=== PATIENT | female | born 2000 | race Caucasian/White ===

== ENCOUNTER 2023-10-10 19:45 | Emergency (ER) | payer MEDICAID, SELFPAY ==
[2023-10-10 19:46] VITALS: BP 178/107; PULSE 122; RESP 16; TEMP 37.5; O2SAT 99; BMI 26.5
--- NOTE | 2023-10-10 19:46 | ED_ITS ---
<Statement entered by Basia Bautista DO - 10/10/23 22:32> I was consulted by the LIT, and we discussed the complexity of the problems being addressed. I approved the treatment and management plan for this patient's care in the emergency department, thus performing a substantive portion of the medical decision making. I performed bedside cardiac ultrasound, which was reassuring. Please see procedure note. I also interpreted EKG, which was also reassuring. Basia Bautista DO Discharge Plan Disposition Patient Disposition: Home, Self-Care Condition: Good Referrals Follow up/Referrals: Provider,MD Divine [Primary Care Provider] - See instructions Balbir Rayo MD [Staff Physician] - See instructions Activity Restrictions/Add. Instructions Additional Instructions/Restrictions: Please call first thing in the morning and make an appointment with cardiology. Return to the ER for any worsening signs or symptoms. Clinical Impressions Clinical Impression: Sinus tachycardia Breast mass, right Qualifiers: Breast mass location: upper inner quadrant Qualified Code(s): N63.12 - Unspecified lump in the right breast, upper inner quadrant Instructions Patient Instructions: DI for Tachycardia, DI for Breast Mass -- Uncertain Cause Print Language Print Language: Emirati Discharge ED Provider: Basia Bautista HPI <ALEXYS Langley - Last Filed: 10/10/23 22:06> General Chief Complaint: Chest Pain Stated Complaint: Chest pain Time Seen by Provider: 10/10/23 19:46 History of Present Illness HPI narrative: Patient presents for evaluation of chest pain and palpitations. Patient states that she has been having a rapid heart rate since a Monday and then began having associated chest pain with it yesterday. Patient states that she noticed that her heart rates been elevated all week but it got as high as 150s and 60s on Monday. 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 She does have a family history of a younger brother who at age 14 of an AVM and has a mother with a history of brain tumor. She denies fever chills hemoptysis hematochezia melena nausea vomiting diarrhea. On arrival patient is tachycardic at 122 Related Data Allergies Allergy/AdvReac Type Severity Reaction Status Date / Time No Known Allergies Allergy Verified 10/10/23 20:10 PFS <ALEXYS Langley - Last Filed: 10/10/23 22:06> COUNTS INCLUDE 234 BEDS AT THE [facility] Disclaimer: The information contained in this section may have been updated after the patient was seen, as this information can be updated by other users. Social History (Updated 10/10/23 @ 22:05 by ALEXYS Langley) Smoking Status: Never smoker alcohol intake: never current occupational status: employed Travel in the last 8 weeks: None <ALEXYS Langley - Last Filed: 10/10/23 22:06> ROS Obtained: Yes Systems reviewed as appropriate & no additional complaints except as documented Physical Exam <ALEXYS Langley - Last Filed: 10/10/23 22:06> General General appearance: alert and in no apparent distress Head Head exam: atraumatic and normal inspection Eye Eye exam: Present normal appearance and EOMI ENT ENT exam: Present normal exam and normal oropharynx Neck Neck exam: Present normal inspection and full ROM; Absent trachea midline or lymphadenopathy Chest Chest inspection: Present normal inspection and symmetric chest wall rise; Absent tenderness Respiratory Respiratory exam: Present normal lung sounds bilaterally; Absent accessory muscle use Cardiovascular Cardiovascular exam: Present normal rhythm, tachycardia, normal heart sounds, +S1 and +S2 Extremities Exam Extremities exam: Present normal inspection and full ROM Back Exam Back exam: Present normal inspection and full ROM Neurological Exam Neurological exam: Present alert, oriented X3 and CN II-XII intact Psychiatric Psychiatric exam: Present normal mood and anxious Skin Skin exam: Present warm, dry and normal color HEART Score <ALEXYS Langley - Last Filed: 10/10/23 22:06> HEART Score HEART Score assessment performed?: Yes History (anamnesis): Slightly suspicious ECG: Non-specific disturbance Age: <45 years Risk factors: No known risk factors Troponin: </= normal limit HEART Score: 1 <Basia Bautista DO - Last Filed: 10/10/23 22:32> HEART Score HEART Score: 1 Procedures <Basia Bautista DO - Last Filed: 10/10/23 22:32> Limited Ultrasound Views:: Limited cardiac ultrasound Indication: Chest pain, palpitation Identified cardiac views: -Cardiac parasternal long axis -Cardiac parasternal short axis -Cardiac subxiphoid Findings: -Cardiac activity present -Gross wall motion normal -Pericardial effusion absent -Right heart strain absent Impression: -From above Images were saved to permanent archive The study was technically adequate CPT: 14987 This study was performed by me, and I personally interpreted all images/videos. Based on my clinical judgement, these images were adequate and did not necessitate further imaging. Critical Care <ALEXYS Langley - Last Filed: 10/10/23 22:06> Critical Care Time Critical Care Time: No Medical Decision Making <ALEXYS Langley - Last Filed: 10/10/23 22:06> Medical Records Medical records reviewed: Yes I reviewed the patient's medical records. Ariel Inquiry Pt receiving controlled substance: No Vital Signs Vital Signs: 10/10/23 19:46 10/10/23 19:57 10/10/23 20:30 Temperature 99.5 F Temperature Source Oral Pulse Rate 122 H 126 H Pulse Rate [Apical] 122 H Respiratory Rate 16 18 Blood Pressure 150/85 H Blood Pressure [Right Arm] 178/107 H Blood Pressure Mean [Right Arm] 130 Blood Pressure Source Blood Pressure Source [Right Arm] Automatic Cuff Blood Pressure Position Blood Pressure Position [Right Arm] Supine 02 Sat by Pulse Oximetry 99 97 Oxygen Delivery Method Room Air 10/10/23 21:00 10/10/23 22:06 Temperature 98.2 F Temperature Source Oral Pulse Rate 111 H 100 H Pulse Rate [Apical] Respiratory Rate 22 20 Blood Pressure 139/89 133/85 Blood Pressure [Right Arm] Blood Pressure Mean [Right Arm] Blood Pressure Source Automatic Cuff Blood Pressure Source [Right Arm] Blood Pressure Position Sitting Blood Pressure Position [Right Arm] 02 Sat by Pulse Oximetry 100 Oxygen Delivery Method Room Air Lab Data Lab results reviewed: Yes I reviewed the patient's lab results. Labs: Lab Results 10/10/23 20:00: WBC 12.7 H, RBC 4.50, Hgb 13.8, Hct 41.6, MCV 92.4, MCH 30.7, MCHC 33.2, RDW 12.8, Plt Count 324, MPV 7.8, Neut % (Auto) 69.2, Lymph % (Auto) 24.7, Holt % (Auto) 4.3, Eos % (Auto) 1.1, Baso % (Auto) 0.7, Neut # (Auto) 8.8 H, Lymph # (Auto) 3.1, Holt # (Auto) 0.5, Eos # (Auto) 0.1, Baso # (Auto) 0.1, Sodium 139, Potassium 3.5, Chloride 106, Carbon Dioxide 25, Anion Gap 11.5, BUN 12, Creatinine 0.90, Estimated Creat Clear 102, Estimated GFR 78, Est GFR ( Amer) 95, Glucose 102 H, Calcium 9.9, Magnesium 1.7, Troponin I < 0.01, TSH 1.66 10/10/23 20:00: TSH 1.67, Free T4 Index 3.9 L, Thyroxine (T4) 13.8 H, T3 Uptake 28, Serum HCG, Qual Negative 10/10/23 20:00 10/10/23 20:00 Response Orders (Tests/Meds): ED MEDICATIONS Discontinued Medications Generic Name Dose Route Start Last Admin Trade Name Freq PRN Reason Stop Dose Admin Acetaminophen 1,000 mg 10/10/23 19:57 10/10/23 20:16 Acetaminophen 1,000mg/100ml Vial IV 10/10/23 19:58 1,000 mg ONCE ONE Administration Hydroxyzine Pamoate 50 mg 10/10/23 19:57 10/10/23 20:16 Hydroxyzine Pamoate 25mg Capsule PO 10/10/23 19:58 50 mg ONCE ONE Administration Lactated Ringer's 1,000 mls @ 999 mls/hr 10/10/23 19:57 10/10/23 20:17 Lactated Ringer's 1000 Ml Bag IV 10/10/23 20:57 999 mls/hr .Q1H1M ONE Administration Iopamidol 75 ml 10/10/23 20:42 10/10/23 20:43 Iopamidol-370 (76%);100ml Bottle IV 10/10/23 20:43 75 ml ONCE ONE Administration Ketorolac Tromethamine 15 mg 10/10/23 19:57 10/10/23 20:16 Ketorolac 30mg/Ml Vial IV 10/10/23 19:58 15 mg ONCE ONE Administration Sodium Chloride 10 ml 10/10/23 20:42 10/10/23 20:43 Sodium Chloride 0.9% 10ml Syr (Rad Only) IV 11/09/23 20:41 10 ml NEEDED PRN Administration Maintain IV Site Sodium Chloride 50 ml 10/10/23 20:42 10/10/23 20:43 0.9 % Sodium Chloride 50 Ml Vial IV 10/10/23 20:43 50 ml ONCE ONE Administration ORDERS Category Date Time Status CT angio chest PE protocol Stat Cat Scan 10/10/23 19:57 Completed POCUS Point of Care (ER Only) Stat Exams 10/10/23 20:08 Taken BMP [Basic Metabolic Panel] Stat Lab 10/10/23 20:00 Completed CBC w/Auto Diff [Complete Blood Count Auto Diff] Stat Lab 10/10/23 20:00 Completed HCG Qualitative, Serum Stat Lab 10/10/23 20:00 Completed Magnesium Stat Lab 10/10/23 20:00 Completed TSH [Thyroid Stimulating Hormone] Stat Lab 10/10/23 20:00 Completed Thyroid Panel Stat Lab 10/10/23 20:00 Completed Trop I [Troponin I] Stat Lab 10/10/23 20:00 Completed MDM Narrative Medical Decision Narrative: In summary patient is a 23-year-old female who presents to the emergency department for evaluation of chest pain and tachycardia. Patient is hypertensive at 178/107 with a heart rate of 122 satting at 99% on room air with respiratory rate of 16 upon arrival, afebrile. Physical exam is unremarkable and nonfocal including no reproducible chest pain on palpation Blanding Coma Score 15 clear breath sounds and sinus tachycardia on the bedside monitor. Differential diagnosis includes sinus tachycardia versus SVT versus electrolyte abnormality versus PE versus hyperthyroidism etc. Initial workup will be conducted with hematologic labs twelve-lead EKG CT PE protocol urine drug screen urinalysis urine . Initial interventions include crystalloid bolus acetaminophen Toradol Vistaril. Initial workup reviewed by me shows that her hematologic labs are nonactionable including a undetectable troponin and normal POCUS echo. Upon repeat evaluation patient did have resolution of her chest pain but still is slightly tachycardic. My informal interpretation of CT PE protocol does not show any acute processes including no thrombus prior to radiology read however radiology read a 1.8 cm multilobulated right breast mass that they recommended be evaluated with nonemergent mammography given this patient is appropriate for discharge with referral to cardiology for further evaluation for other etiologies such as endocrine secreting tumor etc. Patient will be referred back to PCP for scheduling a mammogram for radiographic findings. <Basia Bautista, DO - Last Filed: 10/10/23 22:32> Vital Signs Vital Signs: 10/10/23 19:46 10/10/23 19:57 10/10/23 20:30 Temperature 99.5 F Temperature Source Oral Pulse Rate 122 H 126 H Pulse Rate [Apical] 122 H Respiratory Rate 16 18 Blood Pressure 150/85 H Blood Pressure [Right Arm] 178/107 H Blood Pressure Mean [Right Arm] 130 Blood Pressure Source Blood Pressure Source [Right Arm] Automatic Cuff Blood Pressure Position Blood Pressure Position [Right Arm] Supine 02 Sat by Pulse Oximetry 99 97 Oxygen Delivery Method Room Air 10/10/23 21:00 10/10/23 22:06 Temperature 98.2 F Temperature Source Oral Pulse Rate 111 H 100 H Pulse Rate [Apical] Respiratory Rate 22 20 Blood Pressure 139/89 133/85 Blood Pressure [Right Arm] Blood Pressure Mean [Right Arm] Blood Pressure Source Automatic Cuff Blood Pressure Source [Right Arm] Blood Pressure Position Sitting Blood Pressure Position [Right Arm] 02 Sat by Pulse Oximetry 100 Oxygen Delivery Method Room Air Lab Data Labs: Lab Results 10/10/23 20:00: WBC 12.7 H, RBC 4.50, Hgb 13.8, Hct 41.6, MCV 92.4, MCH 30.7, MCHC 33.2, RDW 12.8, Plt Count 324, MPV 7.8, Neut % (Auto) 69.2, Lymph % (Auto) 24.7, Holt % (Auto) 4.3, Eos % (Auto) 1.1, Baso % (Auto) 0.7, Neut # (Auto) 8.8 H, Lymph # (Auto) 3.1, Holt # (Auto) 0.5, Eos # (Auto) 0.1, Baso # (Auto) 0.1, Sodium 139, Potassium 3.5, Chloride 106, Carbon Dioxide 25, Anion Gap 11.5, BUN 12, Creatinine 0.90, Estimated Creat Clear 102, Estimated GFR 78, Est GFR ( Amer) 95, Glucose 102 H, Calcium 9.9, Magnesium 1.7, Troponin I < 0.01, TSH 1.66 10/10/23 20:00: TSH 1.67, Free T4 Index 3.9 L, Thyroxine (T4) 13.8 H, T3 Uptake 28, Serum HCG, Qual Negative Response Orders (Tests/Meds): ED MEDICATIONS Discontinued Medications Generic Name Dose Route Start Last Admin Trade Name Freq PRN Reason Stop Dose Admin Acetaminophen 1,000 mg 10/10/23 19:57 10/10/23 20:16 Acetaminophen 1,000mg/100ml Vial IV 10/10/23 19:58 1,000 mg ONCE ONE Administration Hydroxyzine Pamoate 50 mg 10/10/23 19:57 10/10/23 20:16 Hydroxyzine Pamoate 25mg Capsule PO 10/10/23 19:58 50 mg ONCE ONE Administration Lactated Ringer's 1,000 mls @ 999 mls/hr 10/10/23 19:57 10/10/23 20:17 Lactated Ringer's 1000 Ml Bag IV 10/10/23 20:57 999 mls/hr .Q1H1M ONE Administration Iopamidol 75 ml 10/10/23 20:42 10/10/23 20:43 Iopamidol-370 (76%);100ml Bottle IV 10/10/23 20:43 75 ml ONCE ONE Administration Ketorolac Tromethamine 15 mg 10/10/23 19:57 10/10/23 20:16 Ketorolac 30mg/Ml Vial IV 10/10/23 19:58 15 mg ONCE ONE Administration Sodium Chloride 10 ml 10/10/23 20:42 10/10/23 20:43 Sodium Chloride 0.9% 10ml Syr (Rad Only) IV 11/09/23 20:41 10 ml NEEDED PRN Administration Maintain IV Site Sodium Chloride 50 ml 10/10/23 20:42 10/10/23 20:43 0.9 % Sodium Chloride 50 Ml Vial IV 10/10/23 20:43 50 ml ONCE ONE Administration ORDERS Category Date Time Status CT angio chest PE protocol Stat Cat Scan 10/10/23 19:57 Completed POCUS Point of Care (ER Only) Stat Exams 10/10/23 20:08 Taken BMP [Basic Metabolic Panel] Stat Lab 10/10/23 20:00 Completed CBC w/Auto Diff [Complete Blood Count Auto Diff] Stat Lab 10/10/23 20:00 Completed HCG Qualitative, Serum Stat Lab 10/10/23 20:00 Completed Magnesium Stat Lab 10/10/23 20:00 Completed TSH [Thyroid Stimulating Hormone] Stat Lab 10/10/23 20:00 Completed Thyroid Panel Stat Lab 10/10/23 20:00 Completed Trop I [Troponin I] Stat Lab 10/10/23 20:00 Completed ECG Data Tracing #1: Attestation: I reviewed this ECG and interpreted as documented below: ECG Narrative: Sinus tachycardia with a ventricular rate of [address] changes concerning for ischemia. Normal axis and intervals. ECG initial impression date: 10/10/23 ECG initial impression time: 19:48
--- NOTE | 2023-10-10 19:46 | ECG_ITS ---
APPROVED REPORT Exam: Resting ECG HR:122 bpm ECG Measurements Heart Rate 122 AXES FL 124 P 64 QRSd 78 QRS 80 QT 295 T 32 QTc 367 Conclusion SINUS TACHYCARDIA NONSPECIFIC T-WAVE ABNORMALITY ABNORMAL RHYTHM ECG Electronically signed by : AUNDREA TRINIDAD, 10/10/2023 21:54:28
[2023-10-10 19:57] VITALS: PULSE 122
--- NOTE | 2023-10-10 19:57 | CT_ITS ---
PROCEDURE INFORMATION: Exam: CTA Chest With Contrast Exam date and time: 10/10/2023 8:42 PM Age: 23 years old Clinical indication: Pain; Tachypnea; Chest pressure; Additional info: Tachycardia, chest pain TECHNIQUE: Imaging protocol: Computed tomographic angiography of the chest with contrast. Exam focused on the arteries. 3D rendering (Not supervised by radiologist): MIP and/or 3D reconstructed images were created by the technologist. Total images: 771 Radiation optimization: All CT scans at this facility use at least one of these dose optimization techniques: automated exposure control; mA and/or kV adjustment per patient size (includes targeted exams where dose is matched to clinical indication); or iterative reconstruction. Contrast material: ISOVUE 370; Contrast volume: 75 ml; Contrast route: INTRAVENOUS (IV); COMPARISON: No relevant prior studies available. FINDINGS: Pulmonary arteries: Adequate contrast opacification the pulmonary arteries. Cardiac pulsation artifact along the pulmonary outflow tract. No acute pulmonary emboli. Aorta: No thoracic aortic aneurysm or dissection. Cardiac pulsation artifact ascending aorta. Thyroid: Thyromegaly. Thymus: Residual thymus. Lungs: The trachea and main bronchi are patent. The lungs are clear and well expanded. Pleural spaces: Unremarkable. No pneumothorax. No pleural effusion. Heart: Normal heart size. No pericardial effusion. Coronary arteries: No coronary artery calcifications. Lymph nodes: No mediastinal or hilar lymphadenopathy. Liver: Hepatic steatosis versus phase of contrast. Stomach: Large quantity recently ingested material within the stomach. Intraperitoneal space: No acute process in the upper abdomen. Bones/joints: Unremarkable. No acute fracture. Soft tissues: 18 mm macrolobulated partially obscured mass in the upper inner quadrant right breast, axial image 48, sagittal image 38 and coronal image 16. IMPRESSION: 1. No acute intrathoracic process. Specifically, no acute pulmonary emboli. 2. 18 mm macrolobulated mass in the upper inner quadrant right breast. Follow-up nonemergent diagnostic ultrasound. 3. Residual thymus. 4. Thyromegaly. 5. Clear lungs.
[2023-10-10 20:09] LABS: Basophils # 0.1 K/mm3 (0-0.2); Basophils % 0.7 % (0.1-2.0); Eosinophils # 0.1 K/mm3 (0.0-0.4); Eosinophils % 1.1 % (0.1-12.0); Hematocrit 41.6 % (37.0-47.0); Hemoglobin 13.8 g/dL (12.2-16.2); Lymphocytes # 3.1 K/mm3 (0.7-4.5); Lymphocytes % 24.7 % (10-50); Mean Corpuscular HGB Conc 33.2 g/dL (31.8-35.4); Mean Corpuscular Hemoglobin 30.7 pg (27.0-31.2); Mean Corpuscular Volume 92.4 fl (81-99); Mean Platelet Volume 7.8 fl (7.4-10.4); Monocytes # 0.5 K/mm3 (0.1-1.0); Monocytes % 4.3 % (1.7-9.3); Neutrophils # 8.8 K/mm3 (1.8-7.8); Neutrophils % 69.2 % (37.0-80.0); Platelet Count 324 K/mm3 (142-424); Red Cell Distribution Width 12.8 % (11.5-17.5); White Blood Count 12.7 K/mm3 (4.8-10.8)
[2023-10-10 20:10] LABS: Chloride 106 mmol/L (98-107); Sodium 139 mmol/L (136-145)
[2023-10-10 20:11] LABS: Potassium 3.5 mmoL/L (3.5-5.1)
[2023-10-10 20:13] LABS: Anion Gap 11.5 mEq/L (5-15); Blood Urea Nitrogen 12 mg/dl (7-17); Calcium 9.9 mg/dl (8.4-10.2); Carbon Dioxide 25 mmol/L (22.0-30.0); Creatinine Clearance Estimated 102 mL/min (50-200); Estimated Glomerular Filt Rate 78 ml/min (>60); GFR (African American) 95 ML/MIN (>60); Glucose 102 mg/dl (74-100)
[2023-10-10 20:14] LABS: Magnesium 1.7 mg/dl (1.6-2.3)
[2023-10-10] MEDS: hydrOXYzine pamoate 25MG CAPSULE 50 MG PO (20:16)
[2023-10-10] MEDS: ACETAMINOPHEN 1,000MG/100ML VIAL 1000 MG IV (20:16)
[2023-10-10] MEDS: KETOROLAC 30MG/ML VIAL 15 MG IV (20:16)
[2023-10-10] MEDS: LACTATED RINGERS 1000ML 1,000 ML 999 ML IV (20:17)
[2023-10-10 20:27] LABS: Troponin I < 0.01 ng/ml (0.00-0.034)
[2023-10-10 20:29] LABS: HCG Qualitative, Serum Negative (Negative)
[2023-10-10 20:30] VITALS: BP 150/85; PULSE 126; RESP 18; O2SAT 97
[2023-10-10 20:38] LABS: Free Thyroxine Index 3.9 ug/dL (5.93-13.13); T4 (Thyroxine) 13.8 ug/dl (5.53-11.0); Triiodothryronine (T3) Uptake 28 % (23.5-40.5)
--- NOTE | 2023-10-10 20:38 | PC.NURSE ---
pt to CT at this time
[2023-10-10] MEDS: 0.9 % SODIUM CHLORIDE 50 ML VIAL IV (20:43)
[2023-10-10] MEDS: IOPAMIDOL-370 (76%);100ML BOTTLE 75 ML IV (20:43)
[2023-10-10] MEDS: SODIUM CHLORIDE 0.9% 10ML SYR (RAD ONLY) 10 ML IV (20:43)
[2023-10-10 20:52] LABS: Thyroid Stimulating Hormone 1.66 uIU/mL (0.465-4.68)
[2023-10-10 21:00] VITALS: BP 139/89; PULSE 111; RESP 22; O2SAT 100
--- NOTE | 2023-10-10 21:06 | PC.NURSE ---
rounded on pt at this time. pt voices no needs.
[2023-10-10 22:06] VITALS: BP 133/85; PULSE 100; RESP 20; TEMP 36.8; O2SAT 97
[2023-10-10 22:25] LABS: Thyroid Stimulating Hormone 1.67 uIU/mL (0.465-4.68)
== END 2023-10-10 22:27 | disposition home or self-care (01) ==
PROVIDERS: Physician Assistant; Emergency Provider Emergency Medicine
DX: R07.89 Other chest pain (principal); N63.12 Unspecified lump in the right breast, upper inner quadrant; R00.0 Tachycardia, unspecified
CPT/HCPCS: 71275; 80048; 83735; 84436; 84443; 84479; 84484; 84703; 85025; 93005; 96361; 96374; 96375; 99285; J0131; J1885; J7120; Q9967

== ENCOUNTER 2023-12-20 12:31 | Outpatient (CLI) | payer MEDICAID, SELFPAY ==
--- NOTE | 2023-12-20 12:41 | CA_ITS ---
APPROVED REPORT EXAM: Comprehensive 2D, Doppler, and color-flow Echocardiogram Ms Sql Server Developer: Laura Valentin, CORRINE, RVS Ht: 5 ft 3 in Wt: 164lbs BSA: 1.78 BP: 137/85 mmHg Indications: Limited bubble study, dyspnea, abn EKG, CP, palpitations Other Information Study Quality: Fair Conclusion This is a limited TTE with administration of agitated saline to evaluate for the presence of interatrial shunt. Limited windows were obtained. Administration of agitated saline at rest and with Valsalva maneuver demonstrate no evidence of interatrial shunt. Electronically signed by : Cassandra Rayo MD 12/21/2023 01:15:31
--- NOTE | 2023-12-20 13:12 | MR_ITS ---
APPROVED REPORT Occupational Ther: CLINICAL INDICATION Dyspnea, tachycardia TECHNIQUE Image Acquisition: Cardiac magnetic resonance (CMR) was performed on Siemens Espree MRI 1.5T scanner. Software platform sequences were performed using the Siemens TDI Bassline MR B19 platform. A set of three-plane, low-resolution, large [id number] localizers were initially acquired. Then axial, coronal, sagittal TrueFISP, as well as axial HASTE images, were obtained. These were followed by gated TrueFISP breathold cinematic sequences obtained in the short axis with 8 mm slices and 2 mm gaps, 2-chamber (vertical long axis), 3-chamber, 4-chamber (horizontal long axis). A bolus of contrast was injected intravenously with first-pass sequences obtained in the short axis and four-chamber planes. After approximately 10 minutes, a TI rerecording mixer sequence was performed to determine the optimal TI time. Using the optimized TI time, delayed contrast enhancement segmented inversion???recovery TurboFLASH sequences were obtained in the short axis, 2-chamber, 3-chamber, and 4-chamber projections. 2D-velocity phase mapping was performed. Functional parameters were calculated by offline analysis on an independent workstation ([employer] Platform, [employer]). Contrast: ProHance??? (Gadoteridol) FINDINGS MORPHOLOGY AND FUNCTION Left ventricle: The left ventricle is normal in size. The indexed left ventricular end-diastolic volume (LVEDVi) is 63 ml/m2 (reference range 57-105 ml/m2 in males, 56-96 ml/m2 in females). Normal left ventricular systolic function is present. There is normal left ventricular wall thickness. There are no regional wall motion abnormalities noted. LVEF is calculated at 61.6% (reference range 57-77%). Right ventricle: The right ventricle is normal in size. The indexed right ventricular end-diastolic volume (RVEDVi) is 58 ml/m2 (reference range 61-121 ml/m2 in males, 48-112 ml/m2 in females). Normal right ventricular systolic function is present. RVEF is calculated at 62.5% (reference range 52-72% in males, 51-71% in females). Atria: The left atrium is normal in size. The maximum indexed left atrial volume is 21 ml/m2 (reference range 26-52 ml/m2 in males, 27-53 ml/m2 in females). The right atrium is normal in size. The maximum indexed right atrial volume is 19 ml/m2 (reference range 18-90 ml/m2). Aorta: The diameter of the aortic annulus is normal, measuring 21 mm (coronal view reference range 21-30 mm in males, 19-27 mm in females). The diameter of the aortic sinus is normal, measuring 26 mm (coronal view reference range 25-42 mm in males, 24-36 mm in females). The diameter of the sinotubular junction is normal, measuring 21 mm (coronal view reference range 18-32 mm in males, 18-28 mm in females). The diameters of the ascending and descending thoracic aorta are normal. Main pulmonary artery: The main pulmonary artery diameter is normal. Pericardium: The pericardial thickness is normal. The pericardial thickness measures 2.3 mm (normal < 4.0 mm). There is no pericardial effusion. VALVES The valvular morphologies in the visualized sequences appear normal. There is no significant valvular stenosis or regurgitation of the mitral, aortic, tricuspid, or pulmonic valve noted visually. Systolic anterior motion of the mitral valve is not visualized. Ratio of pulmonary to systemic flow, Qp:Qs ratio = 1.05 (normal < or = 1.2, hemodynamically significant shunt > 1.5), demonstrating no evidence of hemodynamically significant shunt. TISSUE CHARACTERIZATION Resting Perfusion: Normal myocardial blood flow at rest. No evidence of resting hypoperfusion. Myocardial Fibrosis and/or edema: Normal gadolinium kinetics are present. No evidence of late gadolinium enhancement is noted, consistent with absence of myocardial scarring, infarction, or necrosis. T2-weighted imaging demonstrates no evidence of myocardial edema or inflammation. OTHER No other significant findings are noted. However, this exam is focused on the cardiac structure and function. IMPRESSION Normal LV size with normal LV systolic function. LVEDVi= 63 ml/m2 and LVEF= 61.6%. Normal RV size with normal RV systolic function. RVEDVi= 58 ml/m2 and RVEF= 62.5%. No atrial enlargement. No CMR evidence of myocardial scarring, infarction, or necrosis. No evidence of myocardial edema or inflammation. Perfusion analysis demonstrates normal blood flow at rest with no evidence of resting hypoperfusion. Ratio of pulmonary to systemic flow, Qp:Qs ratio = 1.05 (normal < or = 1.2, hemodynamically significant shunt > 1.5), demonstrating no evidence of hemodynamically significant shunt. This CMR demonstrates normal biventricular size and systolic function. No evidence of structural heart disease. No evidence of myocardial scarring, infarct, or inflammation. COMPARISON None CRITICAL RESULT None COMMUNICATION The above findings were communicated with the patient at the time of her routine outpatient cardiology clinic visit prior to dictation of this report. The findings of this cardiac MR were reviewed, reported, and signed by Balbir Rayo MD (C Unix Developer). Conclusion Electronically signed by : Cassandra Rayo MD 01/10/2024 13:08:11
[2023-12-20] MEDS: GADOTERIDOL INJ 20ML SYRINGE 17 ML IV (15:25)
[2023-12-20] MEDS: 0.9 % SODIUM CHLORIDE 50 ML VIAL 25 ML IV (15:25)
[2023-12-20] MEDS: SODIUM CHLORIDE 0.9% 10ML SYR (RAD ONLY) 10 ML IV (15:25)
== END 2023-12-20 23:59 | disposition home or self-care (01) ==
PROVIDERS: Visit Provider Physician Assistant
DX: R06.00 Dyspnea, unspecified (principal); R00.2 Palpitations; R00.0 Tachycardia, unspecified; R94.31 Abnormal electrocardiogram [ECG] [EKG]
CPT/HCPCS: 75561; 93308; A9576

== ENCOUNTER 2024-02-15 16:04 | Outpatient (CLI) | payer MEDICAID, SELFPAY ==
[2024-02-15 16:45] LABS: Basophils # 0.1 K/mm3 (0-0.2); Basophils % 0.8 % (0.1-2.0); Eosinophils # 0.2 K/mm3 (0.0-0.4); Eosinophils % 2.9 % (0.1-12.0); Hematocrit 38.7 % (37.0-47.0); Hemoglobin 13.1 g/dL (12.2-16.2); Lymphocytes # 2.9 K/mm3 (0.7-4.5); Lymphocytes % 40.9 % (10-50); Mean Corpuscular HGB Conc 33.8 g/dL (31.8-35.4); Mean Corpuscular Hemoglobin 30.9 pg (27.0-31.2); Mean Corpuscular Volume 91.4 fl (81-99); Mean Platelet Volume 7.5 fl (7.4-10.4); Monocytes # 0.4 K/mm3 (0.1-1.0); Monocytes % 5.9 % (1.7-9.3); Neutrophils # 3.5 K/mm3 (1.8-7.8); Neutrophils % 49.5 % (37.0-80.0); Platelet Count 311 K/mm3 (142-424); Red Blood Count 4.23 M/mm3 (4.20-5.40); Red Cell Distribution Width 12.8 % (11.5-17.5)
[2024-02-15 16:54] LABS: Activated Partial Thrombo Time 27.1 seconds (22.8-30.6); Fibrinogen 267 mg/dL (229.9-363.5); INR 0.93 (0.9-1.1); Prothrombin Time 10.5 seconds (10.1-12.5)
[2024-02-15 17:03] LABS: Alanine Aminotransferase 16 U/L (12-78); Albumin Level 4.7 g/dl (3.5-5.0); Alkaline Phosphatase 42 U/L (38-126); Anion Gap 13.1 mEq/L (5-15); Aspartate Amino Transferase 22 U/L (14-36); Bilirubin,Direct 0.2 mg/dl (0.0-0.4); Bilirubin,Indirect 0.5 mg/dL (0.0-0.9); Bilirubin,Total 0.7 mg/dl (0.2-1.3); Bilirubin,Unconjugated 0.5 mg/dL (0.0-1.1); Blood Urea Nitrogen 11 mg/dl (7-17); Calcium 9.7 mg/dl (8.4-10.2); Carbon Dioxide 26 mmol/L (22.0-30.0); Chloride 105 mmol/L (98-107); Chol/HDL Ratio 2.7 (1-3.5); Cholesterol 160 mg/dl (140-200); Estimated Glomerular Filt Rate 105 ml/min (>60); GFR (African American) 127 ML/MIN (>60); Glucose 89 mg/dl (74-100); HDL Cholesterol 59 mg/dl (40-60); Magnesium 1.8 mg/dl (1.6-2.3); Potassium 4.1 mmoL/L (3.5-5.1); Sodium 140 mmol/L (136-145); Total Protein,Serum 7.3 g/dl (6.3-8.2); Triglycerides 100 mg/dl (30-150); VLDL Cholesterol 20 mg/dL (0-40)
[2024-02-15 17:14] LABS: Direct LDL Cholesterol 86.17 mg/dL (100-129)
[2024-02-15 17:20] LABS: Free T4 (Free Thyroxine) 1.28 ng/dl (0.78-2.19)
[2024-02-15 17:32] LABS: Thyroid Stimulating Hormone 0.47 uIU/mL (0.465-4.68)
[2024-02-15 18:18] LABS: Iron 122 ug/dL (37-170)
[2024-02-15 18:28] LABS: Total Iron Binding Capacity 433 ug/dL (265-497)
[2024-02-15 18:55] LABS: Ferritin 20.2 ng/ml (6.24-137)
== END 2024-02-15 23:59 | disposition home or self-care (01) ==
LOC: LAB 16:06
PROVIDERS: Visit Provider Internal Medicine
DX: R94.31 Abnormal electrocardiogram [ECG] [EKG] (principal); R00.2 Palpitations; R00.0 Tachycardia, unspecified; T14.8XXA Other injury of unspecified body region, initial encounter
CPT/HCPCS: 36415; 80048; 80061; 80076; 82728; 83540; 83550; 83735; 84439; 84443; 85025; 85384; 85610; 85730